=== PATIENT | male | born 1970 | race Caucasian/White ===

== ENCOUNTER 2017-06-07 00:07 | Emergency (ER) | payer MEDICAID ==
[~2017-06-07] VITALS: Ht 170.2 cm; Wt 84.0 kg
[2017-06-07] MEDS ORDERED: IBUPROFEN 600MG TABLET PO ONE (05:30)
[2017-06-07 06:20] VITALS: BP 145/79
== END 2017-06-07 06:30 | disposition home or self-care (01) ==
LOC: ER 00:07
DX: S70.02XA Contusion of left hip, initial encounter (principal); W07.XXXA Fall from chair, initial encounter; Y93.89 Activity, other specified; Y92.89 Other specified places as the place of occurrence of the external cause; Y99.8 Other external cause status
CPT/HCPCS: 73502; 99284